=== PATIENT | male | born 1945 | race Caucasian/White ===

== ENCOUNTER 2017-02-17 17:57 | Inpatient (IN) | payer MEDICARE, OTHER ==
[~2017-02-17] VITALS: Ht 165.1 cm; Wt 69.3 kg
[~2017-02-17 17:57] MED LIST: ASPI-891 PO; CARB-38 PO; ISOS30TA6 PO; METO100XL PO; SIMV40TA5 PO; TERA1 PO
[2017-02-17] MEDS ORDERED: SODIUM CHLORIDE 0.9% 1,000 ML IV ONE ×2 (18:30→20:30)
[2017-02-17 18:37] LABS: BASOPHILS % (AUTO) 0.3 % (0.0-2.0); EOSINOPHILS % (AUTO) 0.9 % (1.0-6.0); HEMATOCRIT 43.6 % (41-53); HEMOGLOBIN 14.4 g/dL (13.5-17.5); LYMPHOCYTES # (AUTO) 1.2 K/uL (1.0-4.8); LYMPHOCYTES % (AUTO) 14.4 % (22.0-44.0); MEAN CORPUSCULAR HEMOGLOBIN 28.7 pg (26.0-34.0); MEAN CORPUSCULAR HGB CONC 33.2 G/dL (31.0-37.0); MEAN CORPUSCULAR VOLUME 86 fL (80-100); MONOCYTES # (AUTO) 0.5 K/uL (0.1-1.0); MONOCYTES % (AUTO) 5.8 % (2.0-9.0); NEUTROPHILS # (AUTO) 6.5 K/uL (1.8-7.7); NEUTROPHILS % (AUTO) 78.6 % (40.0-70.0); PLATELET COUNT (AUTO) 147 K/uL (150-450); RED BLOOD CELL COUNT(AUTO) 5.04 MIL/uL (4.50-5.90); RED CELL DISTRIBUTION WIDTH 14.9 % (11.5-14.5); WHITE BLOOD COUNT (AUTO) 8.3 K/uL (4.5-11.0)
[2017-02-17 18:42] LABS: GLUCOSE,POINT OF CARE 121 MG/DL (70-110)
[2017-02-17 18:46] LABS: APPEARANCE,URINE CLOUDY (CLEAR); GLUCOSE, URINE (UA) NEGATIVE (NEGATIVE); KETONES,URINE NEGATIVE (NEGATIVE); LEUKOCYTE ESTERASE ,URINE NEGATIVE (NEGATIVE); OCCULT BLOOD,URINE TRACE (NEGATIVE); PH,URINE 5.5 (5.0-8.0); PROTEIN,URINE POS 1+ (NEGATIVE)
[2017-02-17 18:49] LABS: ANION GAP 10 mmol/L (8-16); CALCIUM, TOTAL 8.7 mg/dL (8.8-10.5); CARBON DIOXIDE 27 mmol/L (22-29); CHLORIDE 106 mmol/L (98-107); CREATININE 1.04 mg/dL (0.60-1.30); GLOMERULAR FILTR. RATE CALC > 60 mL/min (>60); POTASSIUM 3.4 mmol/L (3.5-5.1); SALICYLATE < 2.8 mg/dL (2.8-20.0); SODIUM SERUM 143 mmol/L (136-145); UREA NITROGEN, BLOOD 18 mg/dL (7-18)
[2017-02-17] MEDS ORDERED: CARB1TAB35 PO (18:52)
[2017-02-17 18:54] LABS: ALANINE AMINOTRANSFERASE 37 U/L (12-78); ALBUMIN 3.8 g/dL (3.4-5.0); ASPARTATE AMINOTRANSFERASE 21 U/L (15-37); BILIRUBIN,TOTAL 1.3 mg/dL (0.1-1.0); TOTAL PROTEIN, SERUM 7.4 g/dL (6.4-8.2)
[2017-02-17 18:55] LABS: ACETAMINOPHEN < 2 mcg/mL (10-30)
[2017-02-17 18:56] LABS: TROPONIN I 0.06 ng/mL (0.00-0.05)
[2017-02-17 18:57] LABS: LACTIC ACID 1.9 mmol/L (0.4-2.0)
[2017-02-17 18:58] LABS: RBC,URINE 0-2 /HPF (0-2); WBC,URINE 0-2 /HPF (0-5)
[2017-02-17 18:59] LABS: SQUAMOUS EPITHELIAL CELL,UR Few /LPF (None Seen)
[2017-02-17] MEDS ORDERED: ASPIRIN 81 MG CHEWABLE TABLET PO ONE (20:30)
[2017-02-17] MEDS ORDERED: POTASSIUM CHLORIDE 20 MEQ ER TABLET PO ONE (21:15)
[2017-02-17 21:30] LABS: ANION GAP 8 mmol/L (8-16); CALCIUM, TOTAL 7.9 mg/dL (8.8-10.5); CARBON DIOXIDE 28 mmol/L (22-29); CHLORIDE 109 mmol/L (98-107); GLOMERULAR FILTR. RATE CALC > 60 mL/min (>60); POTASSIUM 3.2 mmol/L (3.5-5.1); SODIUM SERUM 145 mmol/L (136-145); UREA NITROGEN, BLOOD 15 mg/dL (7-18)
[2017-02-17] MEDS ORDERED: 0.9% SODIUM CHLORIDE 10 ML SYRINGE IVP PRN (21:30)
[2017-02-17] MEDS ORDERED: ONDANSETRON HCL 4 MG/2 ML VIAL IVP PRN (21:30)
[2017-02-17] MEDS ORDERED: ACETAMINOPHEN 325 MG TABLET PO PRN (21:30)
[2017-02-17 21:38] LABS: ALANINE AMINOTRANSFERASE 34 U/L (12-78); ALBUMIN 3.4 g/dL (3.4-5.0); ASPARTATE AMINOTRANSFERASE 20 U/L (15-37); BILIRUBIN,TOTAL 1.3 mg/dL (0.1-1.0); TOTAL PROTEIN, SERUM 6.7 g/dL (6.4-8.2)
[2017-02-17 23:25] VITALS: BP 146/96
[2017-02-17] MEDS ORDERED: POTASSIUM CHLORIDE 20 MEQ ER TABLET PO PRN (23:45)
[2017-02-18] MEDS: POTASSIUM CHL 10 MEQ/WATER 50 ML IV PRN ×3 (00:56→04:02)
[2017-02-18 04:03] VITALS: BP 134/92
[2017-02-18 07:14] VITALS: BP 122/87
[2017-02-18 11:00] VITALS: BP 114/75
[2017-02-18 14:12] LABS: BASOPHILS % (AUTO) 0.3 % (0.0-2.0); HEMATOCRIT 44.7 % (41-53); HEMOGLOBIN 14.8 g/dL (13.5-17.5); LYMPHOCYTES # (AUTO) 1.9 K/uL (1.0-4.8); LYMPHOCYTES % (AUTO) 20.8 % (22.0-44.0); MEAN CORPUSCULAR HEMOGLOBIN 28.7 pg (26.0-34.0); MEAN CORPUSCULAR HGB CONC 33.1 G/dL (31.0-37.0); MEAN CORPUSCULAR VOLUME 87 fL (80-100); MONOCYTES # (AUTO) 0.6 K/uL (0.1-1.0); MONOCYTES % (AUTO) 6.3 % (2.0-9.0); NEUTROPHILS # (AUTO) 6.6 K/uL (1.8-7.7); NEUTROPHILS % (AUTO) 70.6 % (40.0-70.0); PLATELET COUNT (AUTO) 153 K/uL (150-450); RED BLOOD CELL COUNT(AUTO) 5.15 MIL/uL (4.50-5.90); WHITE BLOOD COUNT (AUTO) 9.3 K/uL (4.5-11.0)
[2017-02-18 14:18] LABS: ANION GAP 10 mmol/L (8-16); CALCIUM, TOTAL 8.5 mg/dL (8.8-10.5); CARBON DIOXIDE 27 mmol/L (22-29); CHLORIDE 107 mmol/L (98-107); CREATININE 0.99 mg/dL (0.60-1.30); GLOMERULAR FILTR. RATE CALC > 60 mL/min (>60); POTASSIUM 3.9 mmol/L (3.5-5.1); SODIUM SERUM 144 mmol/L (136-145); UREA NITROGEN, BLOOD 14 mg/dL (7-18)
[2017-02-18 14:24] LABS: ALANINE AMINOTRANSFERASE 36 U/L (12-78); ALBUMIN 3.3 g/dL (3.4-5.0); ASPARTATE AMINOTRANSFERASE 17 U/L (15-37); BILIRUBIN,TOTAL 1.3 mg/dL (0.1-1.0)
[2017-02-18 15:26] VITALS: BP 146/86
[2017-02-18] MEDS: CARBIDOPA/LEVODOPA 25-100 MG TABLET PO SCH ×2 (17:24→23:49)
[2017-02-18 20:00] VITALS: BP 140/75
[2017-02-18 23:26] VITALS: BP 139/75
[2017-02-19 03:52] LABS: GLUCOSE,POINT OF CARE 108 MG/DL (70-110)
[2017-02-19 04:00] VITALS: BP 119/69
[2017-02-19 06:42] LABS: GLUCOSE,POINT OF CARE 87 MG/DL (70-110)
[2017-02-19 07:56] VITALS: BP 125/78
[2017-02-19] MEDS: TERAZOSIN HCL 1 MG CAPSULE PO SCH (09:09)
[2017-02-19] MEDS: CARBIDOPA/LEVODOPA 25-100 MG TABLET PO SCH ×3 (09:09→21:45)
[2017-02-19] MEDS: ASPIRIN 325 MG EC TABLET PO SCH (09:09)
[2017-02-19] MEDS: ISOSORBIDE MONONITRATE 30 MG ER TABLET PO SCH (09:09)
[2017-02-19] MEDS: SIMVASTATIN 40 MG TABLET PO SCH (09:10)
[2017-02-19] MEDS: METOPROLOL SUCCINATE 100 MG ER TABLET PO SCH (09:12)
[2017-02-19 11:12] VITALS: BP 128/73
[2017-02-19 15:00] VITALS: BP 102/63
[2017-02-19 19:05] VITALS: BP 97/64
[2017-02-19 19:07] LABS: GLUCOSE,POINT OF CARE 105 MG/DL (70-110)
[2017-02-19 19:07] LABS: GLUCOSE,POINT OF CARE 101 MG/DL (70-110)
[2017-02-19 22:56] LABS: GLUCOSE,POINT OF CARE 101 MG/DL (70-110)
[2017-02-19 23:57] VITALS: BP 110/71
[2017-02-20 04:30] VITALS: BP 109/75
[2017-02-20 06:43] LABS: GLUCOSE,POINT OF CARE 83 MG/DL (70-110)
[2017-02-20 07:14] VITALS: BP 118/78
[2017-02-20] MEDS: CARBIDOPA/LEVODOPA 25-100 MG TABLET PO SCH ×2 (08:41→17:13)
[2017-02-20] MEDS: ISOSORBIDE MONONITRATE 30 MG ER TABLET PO SCH (08:41)
[2017-02-20] MEDS: METOPROLOL SUCCINATE 100 MG ER TABLET PO SCH (08:41)
[2017-02-20] MEDS: TERAZOSIN HCL 1 MG CAPSULE PO SCH (08:41)
[2017-02-20] MEDS: SIMVASTATIN 40 MG TABLET PO SCH (08:42)
[2017-02-20] MEDS: ASPIRIN 325 MG EC TABLET PO SCH (08:42)
[2017-02-20 11:22] LABS: GLUCOSE,POINT OF CARE 101 MG/DL (70-110)
[2017-02-20 11:36] VITALS: BP 103/69
[2017-02-20 15:23] VITALS: BP 110/79
== END 2017-02-20 19:30 | DRG 71 ==
LOC: EMS 18:00 → 5S 21:43 → 6N 02-18 19:14
PROVIDERS: ADMIT Hospitalist; ATTEND Hospitalist
DX: G93.40 Encephalopathy, unspecified (principal); E44.0 Moderate protein-calorie malnutrition; E11.9 Type 2 diabetes mellitus without complications; E78.00 Pure hypercholesterolemia, unspecified; I10 Essential (primary) hypertension; G20 Parkinson's disease; R29.6 Repeated falls; K21.9 Gastro-esophageal reflux disease without esophagitis; N40.0 Benign prostatic hyperplasia without lower urinary tract symptoms; E78.5 Hyperlipidemia, unspecified; Z68.25 Body mass index [BMI] 25.0-25.9, adult; Z79.899 Other long term (current) drug therapy; Z79.82 Long term (current) use of aspirin
CPT/HCPCS: 51701; 70450; 70551; 82948; 82962; 83605; 84132; 86850; 86900; 86901; 87040; 93005; 96360; 96361; 99285; G0480; G0481; J3480; J7030